=== PATIENT | male | born 1990 ===

== ENCOUNTER 2018-09-04 11:33 | Day surgery (SDC) | payer BC ==
[~2018-09-04] VITALS: Ht 182.9 cm; Wt 104.8 kg
[2018-09-04] VITALS (8 sets, daily range): BP systolic 91–114; BP diastolic 49–63
[~2018-09-04 11:33] MED LIST: IBP800T PO
[2018-09-04] MEDS ORDERED: fentaNYL INJECTION 100 MCG/2 ML AMP IVP ONE (11:45)
[2018-09-04] MEDS ORDERED: NS IV 1000 ML 1,000 ML IV SCH (11:45)
--- NOTE | 2018-09-04 11:45 | ED Abdominal Pain ---
General Stated Complaint: ABD PAIN / VOMITING Source of Information: Patient History of Present Illness Date Seen by Provider: September 04, 2018 Time Seen by Provider: 11:42 Initial Comments This 28-year-old white male presents with complaint of lower abdominal pain worse in the right side that began this morning with associated vomiting and diarrhea. Patient was seen at [facility] and referred for rule out appendicitis. Past medical history is essentially unremarkable. Patient drinks alcohol but do es not smoke or use drugs. There is no family history of significance. Allergies and Home Medications Allergies Coded Allergies: No Known Drug Allergies (Unverified , 09/04/18) Patient Home Medication List Home Medication List Reviewed: Yes Review of Systems Review of Systems Constitutional: No chills EENTM: No Blurred Vision Respiratory: Denies Cough Cardiovascular: Denies Chest Pain Gastrointestinal: Abdominal Pain, Diarrhea, Nausea, Vomiting Genitourinary: Denies Burning, Denies Frequency, Denies Flank Pain Musculoskeletal: No back pain Skin: No change in color Psychiatric/Neurological: No Symptoms Reported Endocrine: No Symptoms Reported Hematologic/Lymphatic: No Symptoms Reported Past Tqruljj-Pkekos-Sjwikd Hx Past Med/Social Hx: Reviewed Nursing Past Med/Soc Hx Patient Social History Recent Foreign Travel: No Contact w/Someone Who Travel: No Physical Exam Vital Signs Vital Signs - First Documented 09/04/18 11:46 Temp 98.0 Pulse 83 Resp 20 B/P (MAP) 119/93 (102) Pulse Ox 100 Capillary Refill : Height/Weight/BMI Height: '" Weight: lbs. oz. kg; BMI Method: General Appearance: WD/WN HEENT: normal ENT inspection Neck: normal inspection Respiratory: normal breath sounds Cardiovascular: regular rate, rhythm, no murmur Gastrointestinal: abnormal bowel sounds (hypoactive), tenderness (right lower quadrant) Genital/Rectal: normal genital exam (there is no testicular tenderness or urethral discharge) Extremities: normal range of motion, non-tender, normal inspection Back: normal inspection Male: normal genitalia Neurologic/Psychiatric: no motor/sensory deficits, alert, normal mood/affect, oriented x 3 Skin: normal color, warm/dry Progress/Results/Core Measures Results/Orders Lab Results Laboratory Tests Test 09/04/18 11:44 09/04/18 12:25 Range/Units White Blood Count 19.4 H 4.3-11.0 10^3/uL Red Blood Count 5.26 4.35-5.85 10^6/uL Hemoglobin 15.7 13.3-17.7 G/DL Hematocrit 46 40-54 % Mean Corpuscular Volume 87 80-99 FL Mean Corpuscular Hemoglobin 30 25-34 PG Mean Corpuscular Hemoglobin Concent 34 32-36 G/DL Red Cell Distribution Width 13.2 10.0-14.5 % Platelet Count 255 130-400 10^3/uL Mean Platelet Volume 10.4 7.4-10.4 FL Neutrophils (%) (Auto) 87 H 42-75 % Lymphocytes (%) (Auto) 6 L 12-44 % Monocytes (%) (Auto) 6 0-12 % Eosinophils (%) (Auto) 1 0-10 % Basophils (%) (Auto) 0 0-10 % Neutrophils # (Auto) 16.8 H 1.8-7.8 X 10^3 Lymphocytes # (Auto) 1.2 1.0-4.0 X 10^3 Monocytes # (Auto) 1.2 H 0.0-1.0 X 10^3 Eosinophils # (Auto) 0.1 0.0-0.3 10^3/uL Basophils # (Auto) 0.0 0.0-0.1 10^3/uL Neutrophils % (Manual) 71 % Lymphocytes % (Manual) 11 % Monocytes % (Manual) 6 % Eosinophils % (Manual) 1 % Basophils % (Manual) 0 % Band Neutrophils 11 % Blood Morphology Comment NORMAL Sodium Level 137 135-145 MMOL/L Potassium Level 4.0 3.6-5.0 MMOL/L Chloride Level 101 98-107 MMOL/L Carbon Dioxide Level 21 21-32 MMOL/L Anion Gap 15 H 5-14 MMOL/L Blood Urea Nitrogen 10 7-18 MG/DL Creatinine 0.91 0.60-1.30 MG/DL Estimat Glomerular Filtration Rate > 60 BUN/Creatinine Ratio 11 Glucose Level 120 H 70-105 MG/DL Calcium Level 9.6 8.5-10.1 MG/DL Corrected Calcium 8.5-10.1 MG/DL Total Bilirubin 1.0 0.1-1.0 MG/DL Aspartate Amino Transf (AST/SGOT) 24 5-34 U/L Alanine Aminotransferase (ALT/SGPT) 51 0-55 U/L Alkaline Phosphatase 78 40-136 U/L Total Protein 8.0 6.4-8.2 GM/DL Albumin 5.1 H 3.2-4.5 GM/DL Lipase 8 8-78 U/L Urine Color YELLOW Urine Clarity SLIGHTLY CLOUDY Urine pH 8 5-9 Urine Specific [place] 1.010 L 1.016-1.022 Urine Protein NEGATIVE NEGATIVE Urine Glucose (UA) NEGATIVE NEGATIVE Urine Ketones NEGATIVE NEGATIVE Urine Nitrite NEGATIVE NEGATIVE Urine Bilirubin NEGATIVE NEGATIVE Urine Urobilinogen NORMAL NORMAL MG/DL Urine Leukocyte Esterase NEGATIVE NEGATIVE Urine RBC (Auto) NEGATIVE NEGATIVE Urine RBC NONE /HPF Urine WBC RARE /HPF Urine Crystals PRESENT H /LPF Urine Amorphous Sediment RARE ALEKSANDRA PHOSPHATE H /LPF Urine Bacteria NEGATIVE /HPF Urine Casts NONE /LPF Urine Mucus SMALL H /LPF Urine Culture Indicated NO My Orders Orders - EDY HOUSTON MD Cbc And Manual Diff (09/04/18 11:45) Comprehensive Metabolic Panel (09/04/18 11:45) Lipase (09/04/18 11:45) Ua Culture If Indicated (09/04/18 11:45) Ct Abd/Pelv W (Appendicitis) (09/04/18 11:45) Ns Iv 1000 Ml (Sodium Chloride 0.9%) (09/04/18 11:45) Fentanyl Injection (Sublimaze Injection (09/04/18 11:45) Ondansetron Injection (Zofran Injectio (09/04/18 12:00) Iohexol Injection (Omnipaque 350 Mg/Ml 1 (09/04/18 12:00) Received Contrast (Hold Metformin- Contr (09/04/18 12:00) Ns (Ivpb) (Sodium Chloride 0.9%) (09/04/18 12:00) Medications Given in ED Current Medications Medications Dose Ordered Sig/Lexy Route Start Time Stop Time Status Last Admin Dose Admin Fentanyl Citrate 50 mcg ONCE ONCE IVP 09/04/18 11:45 09/04/18 11:47 DC 09/04/18 12:05 50 MCG Iohexol 100 ml ONCE ONCE IV 09/04/18 12:00 09/04/18 12:01 DC 09/04/18 12:30 100 ML Ondansetron HCl 4 mg ONCE ONCE IVP 09/04/18 12:00 09/04/18 12:01 DC 09/04/18 12:05 4 MG Sodium Chloride 250 ml ONCE ONCE IV 09/04/18 12:00 09/04/18 12:01 DC 09/04/18 12:30 80 ML Vital Signs/I&O 09/04/18 11:46 Temp 98.0 Pulse 83 Resp 20 B/P (MAP) 119/93 (102) Pulse Ox 100 Progress Progress Note : Time: 12:[address] of the abdomen was consistent with appendicitis. Dr. Harris presented to take the patient to surgery. Departure Communication (Admissions) Time/Spoke to Admitting Phy: 12:49 Dr. Harris Impression Primary Impression: Appendicitis Qualified Codes: K35.80 - Unspecified acute appendicitis Disposition: ADMITTED INPATIENT Condition: Unchanged Admissions Decision to Admit Reason: Admit from ER (General) Decision to Admit/Date: September 04, 2018 Time/Decision to Admit Time: 12:49 Departure-Patient Inst. Referrals: NO,LOCAL PHYSICIAN (PCP/Family) Primary Care Physician EDY HOUSTON MD September 04, 2018 11:45
[2018-09-04 11:53] LABS: BASOPHILS % (AUTO) 0 % (0-10); EOSINOPHILS # (AUTO) 0.1 10^3/uL (0.0-0.3); EOSINOPHILS % (AUTO) 1 % (0-10); HEMATOCRIT 46 % (40-54); HEMOGLOBIN 15.7 G/DL (13.3-17.7); LYMPHOCYTES # (AUTO) 1.2 X 10^3 (1.0-4.0); LYMPHOCYTES % (AUTO) 6 % (12-44); MEAN CORPUSCULAR HEMOGLOBIN 30 PG (25-34); MEAN CORPUSCULAR HGB CONC 34 G/DL (32-36); MEAN CORPUSCULAR VOLUME 87 FL (80-99); MEAN PLATELET VOLUME 10.4 FL (7.4-10.4); MONOCYTES # (AUTO) 1.2 X 10^3 (0.0-1.0); MONOCYTES % (AUTO) 6 % (0-12); NEUTROPHILS # (AUTO) 16.8 X 10^3 (1.8-7.8); NEUTROPHILS % (AUTO) 87 % (42-75); PLATELET COUNT 255 10^3/uL (130-400); RED CELL DISTRIBUTION WIDTH 13.2 % (10.0-14.5); WHITE BLOOD COUNT 19.4 10^3/uL (4.3-11.0)
[2018-09-04] MEDS ORDERED: HOLD METFORMIN - RECEIVED CONTRAST 20 ML VIAL IV SCH (12:00)
[2018-09-04] MEDS ORDERED: ONDANSETRON 4 MG/2 ML (SDV) Z0FRAN IVP ONE (12:00)
[2018-09-04] MEDS ORDERED: NS 250 ML (IVPB) BAG IV ONE (12:00)
[2018-09-04] MEDS ORDERED: IOHEXOL 350 MG/ML 100 ML (OMNIPAQUE 350) VIAL IV ONE (12:00)
[2018-09-04 12:12] LABS: ALANINE AMINOTRANSFERASE 51 U/L (0-55); ALBUMIN 5.1 GM/DL (3.2-4.5); ALKALINE PHOSPHATASE 78 U/L (40-136); BUN/CREATININE RATIO 11; CALCIUM 9.6 MG/DL (8.5-10.1); CARBON DIOXIDE 21 MMOL/L (21-32); CHLORIDE 101 MMOL/L (98-107); CREATININE SERUM 0.91 MG/DL (0.60-1.30); GFR ESTIMATED > 60; GLUCOSE 120 MG/DL (70-105); LIPASE 8 U/L (8-78); SODIUM 137 MMOL/L (135-145)
[2018-09-04 12:30] LABS: BILIRUBIN,URINE NEGATIVE (NEGATIVE); CLARITY,URINE SLIGHTLY CLOUDY; COLOR,URINE YELLOW; GLUCOSE, URINE (UA) NEGATIVE (NEGATIVE); KETONES,URINE NEGATIVE (NEGATIVE); LEUKOCYTE ESTERASE ,URINE NEGATIVE (NEGATIVE); NITRITE,URINE NEGATIVE (NEGATIVE); PH,URINE 8 (5-9); PROTEIN,URINE NEGATIVE (NEGATIVE); UROBILINOGEN,URINE NORMAL (NORMAL)
[2018-09-04 12:31] LABS: BAND NEUTROPHILS 11 %; BASOPHILS % (MANUAL) 0 %; EOSINOPHILS % (MANUAL) 1 %; LYMPHOCYTES % (MANUAL) 11 %; MONOCYTES % (MANUAL) 6 %; NEUTROPHILS % (MANUAL) 71 %
[2018-09-04 12:32] LABS: RBC MORPH NORMAL
[2018-09-04 12:38] LABS: AMORPHOUS SEDIMENT,UR RARE AMOR PHOSPHATE /LPF; BACTERIA,URINE NEGATIVE /HPF; WBC,URINE RARE /HPF
--- NOTE | 2018-09-04 13:00 | NUR ---
DR LOPEZ HERE ASSESSING PT AT THIS TIME.
--- NOTE | 2018-09-04 13:00 | Consultation (Surgery) ---
History of Present Illness History of Present Illness Patient Consulted On(lukas/time) 09/04/18 12:54 Time Seen by Provider: 12:42 History of Present Illness Surgery asked to consult regarding RLQ pain. HPI per ED: This 28-year-old white male presents with complaint of lower abdominal pain worse in the right side that began this morning with associated vomiting and diarrhea. Patient was seen at [facility] and referred for rule out appendicitis. When I spoke to pt in the ER he states pain is at least 8 out of 10, worst its ever been and even with pain meds he can still feel it. He states he had similar pain about a year ago and treated it with OTC "stuff" and it went away. He thought this time it was food poisoning because it started right after a BBQ last night. Pain started upper abdomen and is now all in RLQ; describing it as sharp stabbing pain. He also stated he always thought he was gonna have appendix removed, because almost everyone else in his family has had it removed. Moving makes pain worse. Allergies and Home Medications Allergies Coded Allergies: No Known Drug Allergies (Unverified , 09/04/18) Patient Home Medication List Home Medication List Reviewed: Yes Past Njwxkgd-Damivs-Alggcg Hx Patient Social History Alcohol Use: Occasionally Uses Recreational Drug Use: No Smoking Status: Never a Smoker Recent Foreign Travel: No Contact w/Someone Who Travel: No Recent Infectious Disease Expo: No Surgeries History of Surgeries: No Respiratory History of Respiratory Disorde: No Cardiovascular History of Cardiac Disorders: No Neurological History of Neurological Disord: No Genitourinary History of Genitourinary Disor: No Gastrointestinal History of Gastrointestinal Di: No Musculoskeletal History of Musculoskeletal Dis: No Endocrine History of Endocrine Disorders: No HEENT History of HEENT Disorders: No Cancer History of Cancer: No Psychosocial History of Psychiatric Problem: No Integumentary History of Skin or Integumenta: No Blood Transfusions History of Blood Disorders: No Family Medical History Significant Family History: Cerebral Aneurysm (state mother when he was 3 of some brain tumor, not sure what), Diabetes (father is pre-diabetic), Hypertension (states father does not have HTN) Review of Systems-General Constitutional: chills, diaphoresis, malaise, weakness EENTM: No blurred vision, No double vision, No mouth pain, No epistaxis Respiratory: No cough, No dyspnea on exertion Cardiovascular: No chest pain, No edema, No palpitations Gastrointestinal: abdominal pain, diarrhea; No jaundice, No melena; nausea, vomiting Genitourinary: No dysuria, No frequency, No hematuria Musculoskeletal: No joint pain, No joint swelling, No muscle pain Skin: No change in color, No change in hair/nails Psychiatric/Neurological: Denies Anxiety, Denies Depressed, Denies Seizure, Denies Tremors Other pt denies any abnormal bleeding or bruising,no heat or cold intolerance Physical Exam-General Problems Physical Exam Vital Signs Vital Signs - First Documented 09/04/18 11:46 Temp 98.0 Pulse 83 Resp 20 B/P (MAP) 119/93 (102) Pulse Ox 100 Capillary Refill : Less Than 3 Seconds General Appearance: WD/WN, mild distress Eyes: Bilateral Eye PERRL, Bilateral Eye EOMI HEENT: pharynx normal; No scleral icterus (R), No scleral icterus (L) Neck: non-tender, full range of motion, supple, normal inspection Respiratory: chest non-tender, lungs clear, normal breath sounds, no respiratory distress, no accessory muscle use Cardiovascular: regular rate, rhythm, no edema, no murmur Gastrointestinal: no organomegaly, guarding, tenderness, hernia (small umbilical) Back: no CVA tenderness, no vertebral tenderness Extremities: normal range of motion, non-tender, normal inspection, no pedal edema, no calf tenderness 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, no motor/sensory deficits, alert, normal mood/affect, oriented x 3 Skin: normal color, warm/dry Lymphatic: no adenopathy (neck, axilla or groin) Data Review Labs Laboratory Tests 09/04/18 11:44: White Blood Count 19.4H, Red Blood Count 5.26, Hemoglobin 15.7, Hematocrit 46, Mean Corpuscular Volume 87, Mean Corpuscular Hemoglobin 30, Mean Corpuscular Hemoglobin Concent 34, Red Cell Distribution Width 13.2, Platelet Count 255, Mean Platelet Volume 10.4, Neutrophils (%) (Auto) 87H, Lymphocytes (%) (Auto) 6L , Monocytes (%) (Auto) 6, Eosinophils (%) (Auto) 1, Basophils (%) (Auto) 0, Neut rophils # (Auto) 16.8H, Lymphocytes # (Auto) 1.2, Monocytes # (Auto) 1.2H, Eosinophils # (Auto) 0.1, Basophils # (Auto) 0.0, Neutrophils % (Manual) 71, Lymphocytes % (Manual) 11, Monocytes % (Manual) 6, Eosinophils % (Manual) 1, Basophils % (Manual) 0, Band Neutrophils 11, Blood Morphology Comment NORMAL, Sodium Level 137, Potassium Level 4.0, Chloride Level 101, Carbon Dioxide Level 21, Anion Gap 15H, Blood Urea Nitrogen 10, Creatinine 0.91, Estimat Glomerular Filtration Rate > 60, BUN/Creatinine Ratio 11, Glucose Level 120H, Calcium Level 9.6, Corrected Calcium , Total Bilirubin 1.0, Aspartate Amino Transf (AST/SGOT) 24, Alanine Aminotransferase (ALT/SGPT) 51, Alkaline Phosphatase 78, Total Protein 8.0, Albumin 5.1H, Lipase 8 09/04/18 12:25: Urine Color YELLOW, Urine Clarity SLIGHTLY CLOUDY, Urine pH 8, Urine Specific [place] 1.010L, Urine Protein NEGATIVE, Urine Glucose (UA) NEGATIVE, Urine Ketones NEGATIVE, Urine Nitrite NEGATIVE, Urine Bilirubin NEGATIVE, Urine Urobilinogen NORMAL, Urine Leukocyte Esterase NEGATIVE, Urine RBC (Auto) NEGATIVE, Urine RBC NONE, Urine WBC RARE, Urine Crystals PRESENTH, Urine Amorphous Sediment RARE ALEKSANDRA PHOSPHATEH, Urine Bacteria NEGATIVE, Urine Casts NONE, Urine Mucus SMALLH, Urine Culture Indicated NO Assessment/Plan Assessment/Plan Assessment/Plan Acute appendicitis with Appendicolith Plan is NPO, IV fluids, pain control will get IV ABX just prior to OR. To OR for Laparoscopic Appendectomy possible open. Discussed procedure with pt; risks and complications not limited to pain, bleeding, infection, scar, damage to bowel and need for further procedure. All questions answered to his satisfaction. CARMINA LOPEZ DO September 04, 2018 13:00
--- NOTE | 2018-09-04 13:03 | Diagnostic Imaging Report ---
PROCEDURE: CT abdomen and pelvis with contrast, rule out appendicitis. TECHNIQUE: Multiple contiguous axial images were obtained through the abdomen and pelvis after the administration of intravenous contrast. INDICATION: Right lower quadrant abdominal pain. No comparison available. FINDINGS: The lung bases demonstrates some mild dependent atelectasis and otherwise are clear. There is no pleural effusion. The liver demonstrates no focal intrahepatic abnormality. The gallbladder is nondistended. There is no radiodense gallstone or evidence of biliary dilatation. There appears to likely be mild hepatic steatosis with some focal fatty sparing along the gallbladder fossa. Spleen is normal in size. The pancreas is unremarkable. There is no adrenal mass. The kidneys enhance normally and appear nonobstructed. Small and large bowel are normal in caliber without evidence of obstruction. There is no abnormal small or large bowel thickening. The appendix is abnormally enlarged and contains an appendicolith and has adjacent inflammatory fat stranding. The findings are compatible with an acute appendicitis. There is no free air or evidence of an abscess. There is a small degree of free fluid present within the pelvis. Urinary bladder nondistended. There are no pathologically enlarged lymph nodes. Aorta is normal in caliber. There is no acute or suspicious osseous abnormality. IMPRESSION: 1. No abnormally enlarged appendix with an appendicolith and adjacent fat stranding. There is a small degree of free fluid present within the pelvis but no free air. The appendix measures up to 12 mm in size. Findings are compatible with an acute appendicitis. 2. There is no bowel obstruction. Dictated by: Dictated on workstation # [id number]
--- NOTE | 2018-09-04 13:12 | NUR ---
anesthesia here assessing pt at this time.
[2018-09-04] MEDS ORDERED: SEVOFLURANE (ULTANE) 15 ML INHAL SOLN ONE ×3 (13:14→14:15)
[2018-09-04] MEDS ORDERED: DEXAMETHASONE 10 MG/ML (DECADRON) 1 ML VIAL ONE (13:14)
[2018-09-04] MEDS ORDERED: ONDANSETRON 4 MG/2 ML (SDV) Z0FRAN ONE ×2 (13:14→14:15)
[2018-09-04] MEDS ORDERED: proPOfol 200 MG/20 ML (DIPRIVAN) VIAL IV ONE (13:14)
[2018-09-04] MEDS ORDERED: LIDOCAINE PF 2% 5 ML (XYLOCAINE) VIAL ONE (13:14)
[2018-09-04] MEDS ORDERED: MIDAZOLAM 2 MG/2 ML (VERSED) VIAL ONE (13:15)
[2018-09-04] MEDS ORDERED: fentaNYL INJECTION 100 MCG/2 ML AMP ONE (13:15)
[2018-09-04] MEDS ORDERED: BUP/EPI 0.5% 1:200,000 (SENSORCAINE) 30 ML VIAL ONE (13:16)
[2018-09-04] MEDS ORDERED: LIDOCAINE 1% INJ 20 ML 20 ML VIAL ONE (13:16)
--- NOTE | 2018-09-04 13:19 | NUR ---
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
--- OUTSIDE RECORDS SUMMARY | 2018-09-04 13:30 | XMS REPORT ---
Author Author HIRO DAVIS [facility] [address] Address [address] [place] [address] Care Team Providers Care Cataract Lens Generator Name Role Phone DAVISHIRO Unavailable PROBLEMS Type Condition ICD9-CM Code LEY31-NA Code Onset Dates Condition Status SNOMED Code Problem Impacted cerumen 380.4 Active 08565595 Problem Closed fracture of shaft of fibula with tibia 823.22 Active 305194709 ALLERGIES No Information ENCOUNTERS Encounter Location Date Diagnosis [facility] [id number] [place] [phone] Jan, Encounter for immunization Z23 [facility] [address] [id number] Apr, Encounter for dental exam and cleaning w/o abnormal findings Z01.20 [facility] [place] [address] [id number] Jul, [facility] [place] [address] [address] Jul, [facility] [place] [id number] [place] [phone] Sep, [facility] [place] [id number] [place] [phone] Sep, [facility] [place] [address] [address] August, [facility] [place] [address] [address] August, [facility] [place] [id number] [place] [phone] August, [facility] [place] [address] [place] [address] August, [facility] [place] [address] [facility] [id number] [address] Jun, [facility] [place] [address] [facility] [id number], [place] [address] Jun, [facility] [place] [address] [facility] [id number], [place] [address] Jun, [facility] [place] [address] [id number], [place] [address] Jun, [facility] [place] [address] [id number], [place] [address] Feb, [facility] [place] [address] [id number], [place] [address] Feb, IMMUNIZATIONS Vaccine Route Administration Date Status FLULAVAL QUAD 0.5ML (6 MO & UP) 2018 IM Intramuscular Feb 13, 2018 Administered SOCIAL HISTORY Never Assessed REASON FOR VISIT Flu [facility]. [facility] PLAN OF CARE VITAL SIGNS MEDICATIONS Unknown Medications RESULTS No Results PROCEDURES Procedure Date Ordered Result Body Site FLULAVAL QUAD 0.5ML (6 MO AND UP) 2018 Feb 13, 2018 SINGLE IMMUNIZATION ADMIN Feb 13, 2018 INSTRUCTIONS MEDICATIONS ADMINISTERED No Known Medications
--- OUTSIDE RECORDS SUMMARY | 2018-09-04 13:30 | XMS REPORT ---
Author Author PARAG MCCANN [facility] Address [address] [place] [address] Phone Unavailable Care Team Providers Care Neuropsychology Director Name Role Phone PARAG MCCANN Unavailable Unavailable PROBLEMS Type Condition ICD9-CM Code VWP88-FV Code Onset Dates Condition Status SNOMED Code Problem Impacted cerumen 380.4 Active 08705504 Problem Closed fracture of shaft of fibula with tibia 823.22 Active 172805841 ALLERGIES No Information ENCOUNTERS Encounter Location Date Diagnosis [facility] [id number] [place] [id number] Apr, Encounter for dental exam and cleaning w/o abnormal findings Z01.20 [facility] [id number] [place] [phone] Jul, [facility] [id number] [place] [address] Jul, [facility] [id number] [place] [address] Sep, [facility] [id number] [place] [address] Sep, [facility] [id number] [place] [address] August, [facility] [id number] [place] [address] August, [facility] [id number] [place] [phone] August, [facility] [id number] [place] [address] August, [facility] [id number] [place] [phone] Jun, [facility] [address] [facility] [id number], [place] [address] 27 Jun, 2013 [facility] [address] [facility] [id number], [place] [address] 17 Jun, 2013 [facility] [address] [facility] [id number], [place] [address] 17 Jun, 2013 [facility] [address] [facility] [id number], [place] [address] 16 Feb, 2010 [facility] [address] [facility] [id number], [place] [address] 16 Feb, 2010 IMMUNIZATIONS No Known Immunizations SOCIAL HISTORY Never Assessed REASON FOR VISIT PROPHY PLAN OF CARE Activity Details Follow Up prn Reason:40 MINUTES RESTORATIVE VITAL SIGNS MEDICATIONS Unknown Medications RESULTS No Results PROCEDURES Procedure Date Ordered Result Body Site COMP ORAL EVALUATION - NEW/EST PT Apr 27, 2017 INTRAORL-PERIAPICAL 1 FILM [id number] Apr 27, 2017 PROPHYLAXIS - ADULT Apr 27, 2017 INTRAORL-PERIAPICAL EA ADD FILM Apr 27, 2017 INTRAORL-PERIAPICAL EA ADD FILM Apr 27, 2017 BITEWINGS - FOUR FILMS Apr 27, 2017 INTRAORL-PERIAPICAL EA ADD FILM Apr 27, 2017 INSTRUCTIONS MEDICATIONS ADMINISTERED No Known Medications
--- OUTSIDE RECORDS SUMMARY | 2018-09-04 13:30 | XMS REPORT | Continuity of Care Document ---
Author Organization Unknown Address Unknown Allergies There is no data. Medications There is no data. 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 01/23/2010 HIRO DAVIS DO 296.31 MO DEPRESSIVE RECURRENT MILD 01/23/2010 HIRO DAVIS DO 296.31 MO DEPRESSIVE RECURRENT MILD 03/05/2010 HIRO DAVIS DO V70.0 ROUTINE GENERAL MEDICAL EXAMINATION AT A HEALTH CARE FACILITY 03/05/2010 HIRO DAVIS DO V70.0 ROUTINE GENERAL MEDICAL EXAMINATION AT A HEALTH CARE FACILITY 03/05/2010 HIRO DAVIS DO V70.0 ROUTINE GENERAL MEDICAL EXAMINATION AT A HEALTH CARE FACILITY 03/05/2010 HIRO DAVIS DO V70.0 ROUTINE GENERAL MEDICAL EXAMINATION AT A HEALTH CARE FACILITY 07/04/2013 HIRO DAVIS DO 823.22 CLOSED FRACTURE OF SHAFT OF FIBULA WITH TIBIA 07/04/2013 HIRO DAVIS DO 823.22 CLOSED FRACTURE OF SHAFT OF FIBULA WITH TIBIA 07/04/2013 HIRO DAVIS DO 823.22 CLOSED FRACTURE OF SHAFT OF FIBULA WITH TIBIA 07/04/2013 HIRO DAVIS DO 823.22 CLOSED FRACTURE OF SHAFT OF FIBULA WITH TIBIA 09/26/2013 HIRO DAVIS DO 380.4 IMPACTED CERUMEN Procedures Code Description Performed By Performed On ORTHOPEDI RAVI FARMER 07/05/2013 27473 XRAY ANKLE L COMP MIN, 3 VIEWS 07/14/2013 62656 XRAY ANKLE L, 2 VIEW 08/24/2013 47503 EAR LAVAGE 09/27/2013 Results There is no data. Encounters ACCT No. Visit Date/Time Discharge Status Pt. Type Provider Facility Loc./Unit Complaint [id number] 09/26/2013 18:39:00 09/26/2013 23:59:59 CLS Outpatient HIRO DAVIS DO [id number] 08/18/2013 12:05:00 08/18/2013 23:59:59 CLS Outpatient HIRO DAVIS DO Radu [id number] 07/14/2013 13:58:00 07/14/2013 23:59:59 CLS Outpatient HIRO DAVIS DO Radu [id number] 07/04/2013 17:27:00 07/04/2013 23:59:59 CLS Outpatient HIRO DAVIS DO [id number] 06/30/2013 18:36:00 06/30/2013 23:59:59 CLS Outpatient [id number] 09/04/2018 12:48:00 ACT Outpatient CARMINA LOPEZ DO Via [facility] APPY [id number] 09/04/2018 09:15:00 ACT Outpatient [facility]
--- OUTSIDE RECORDS SUMMARY | 2018-09-04 13:37 | XMS REPORT | Continuity of Care Document ---
[...] By Performed On ORTHOPEDI RAVI FARMER 07/05/2013 35736 XRAY ANKLE L COMP MIN, 3 VIEWS 07/14/2013 34378 XRAY ANKLE L, 2 VIEW 08/24/2013 [id number] EAR LAVAGE 09/27/2013 Results There is no data. Encounters ACCT No. Visit Date/Time Discharge Status Pt. Type Provider Facility Loc./Unit Complaint [id number] 09/26/2013 18:39:00 09/26/2013 23:59:59 CLS Outpatient HIRO DAVIS DO [id number] 08/18/2013 12:05:00 08/18/2013 23:59:59 CLS Outpatient HIRO DAVIS DO Radu [id number] 07/14/2013 13:58:00 07/14/2013 23:59:59 CLS Outpatient HIRO DAVIS DO Radu [id number] 07/04/2013 17:27:00 07/04/2013 23:59:59 CLS Outpatient HIRO DAVIS DO [id number] 06/30/2013 18:36:00 06/30/2013 23:59:59 CLS Outpatient [id number] 09/04/2018 12:48:00 ACT Outpatient CARMINA LOPEZ DO [facility] APPY [id number] 09/04/2018 09:15:00 ACT Outpatient [facility]
[2018-09-04] MEDS ORDERED: ceFAZolin INJECTION 2,000 MG ONE (14:04)
--- NOTE | 2018-09-04 14:12 | Progress Note-Post Operative ---
Post-Operative Progess Note Surgeon (s)/Superintendent Pipelines (s) Surgeon CARMINA LOPEZ DO Superintendent Pipelines: NONE Pre-Operative Diagnosis Acute appy Post-Operative Diagnosis same plus small Indirect RIH, with small LIH Procedure & Operative Findings Date of Procedure 09/04/18 Procedure Performed/Findings Lap appy Anesthesia Type GET Estimated Blood Loss Estimated blood loss (mL): scant Specimens/Packing Specimens Removed CARMINA Suh DO September 04, 2018 14:12
[2018-09-04] MEDS ORDERED: ACHD5005 PO (14:13)
--- NOTE | 2018-09-04 14:14 | Discharge Inst-Surgical ---
Discharge Inst-Surgical Depart Medication/Instructions New, Converted or Re-Newed RX: RX Given to Pt/Family Patient Instructions Follow up Appt: Make appointment for 1 week. [phone] Instructions: No lifting greater than 20 pounds. No strenuous activity. May shower in 24 hours, no tub bath or soaking. Use incentive spirometer at home as directed. No Smoking Skin/Wound Care: May remove bandages in am. You need to leave the Dermabond on incision it will fall off on it's own. Symptoms to Report: Appetite Changes, Extremity Discoloration, Numbness/Tingling, Swelling Increased, Bleeding Excessive, Eyesight Changes, Pain Increased, Urine Color Change, Constipation(Persistent), Fever over 101 degree F, Pain/Pressure in chest, Urinating Difficulty, Cough Up/Vomit Blood, Heart Beat Irreg/Pounding, Pain/Pressure in jaw, Cramps in feet or legs, Lightheadedness, Pain/Pressure in shoulder, Diarrhea(Persistent), Memory Changes Suddenly, Questions/Concerns, Weight gain consecutive days, Dizziness/Fainting, Nausea/Vomiting, Shortness of Breath, Weight gain over 2 pounds If questions or concerns contact your physician Or seek help at emergency department. Activity Activity as Tolerated: Yes Activity Instructions: Avoid Stress to Incision Driving Instructions: No Driving/Refer to Dr. Monroy Discharge Diet: No Restrictions Diet After 24 Hours: Clear Liquid if Nauseous If Any Problems/Questions/Issu: Contact Your Physician, Go to Emergency Room Skin/Wound Care Infection Signs and Symptoms: Increased Redness, Foul Odor of Wound, Increased Drainage, Skin Itchy or Has a Rash, Increased Swelling, Temperature Above 101 F Wound Care Comment: Use heating pad to shoulder or neck tonight for pain Bathing Instructions: Shower Stitches/Doug/Dermabond Dis: Dermabond Ice Pack: Ice On and Off Site (as needed for pain at incision sites.) CARMINA LOPEZ DO September 04, 2018 14:14
[2018-09-04] MEDS ORDERED: morphine INJ 10 MG/ML 1ML (SYR OR VIAL) ONE (14:15)
[2018-09-04] MEDS ORDERED: NEOSTIGMINE 1 MG/ML 5 ML SYRINGE ONE (14:15)
[2018-09-04] MEDS ORDERED: KETOROLAC 30 MG/ML VIAL ONE (14:15)
[2018-09-04] MEDS ORDERED: GLYCOPYRROLATE 0.2 MG/ML (ROBINUL) 2 ML VIAL ONE (14:15)
[2018-09-04] MEDS ORDERED: LACTATED RINGERS 1,000 ML IV SCH (14:15)
[2018-09-04] MEDS ORDERED: morphine INJ 10 MG/ML 1ML (SYR OR VIAL) IVP ONE (14:45)
[2018-09-04] MEDS ORDERED: PROMETHAZINE INJ 25 MG/ML (PHENERGAN) AMP IVP ONE (14:45)
[2018-09-04] MEDS ORDERED: ONDANSETRON 4 MG/2 ML (SDV) Z0FRAN IVP PRN (14:45)
--- NOTE | 2018-09-04 18:59 | OPERATIVE REPORT ---
DATE OF SERVICE: 09/04/2018 PREOPERATIVE DIAGNOSIS: Acute appendicitis. POSTOPERATIVE DIAGNOSES: Acute appendicitis. The patient had a small right indirect inguinal hernia and the left inguinal hernia. PROCEDURE: Laparoscopic appendectomy. SURGEON: Sherwin Harris DO. CATEGORY DIRECTOR: None. ANESTHESIA: General endotracheal tube. SPECIMEN: Appendix. BLOOD LOSS: Scant. FLUIDS: Per anesthesia. POSTOPERATIVE CONDITION: Stable. INDICATION FOR PROCEDURE: The patient is a 28-year-old male with right lower quadrant pain, 19,[address], which showed acute appendicitis with appendicolith. FINDINGS: The patient had acute appendicitis. PROCEDURE NOTE: After informed consent was obtained, the patient was brought to the operating room, placed on the table in the supine position, sterilely prepped and draped in normal fashion. Local lidocaine was used to infiltrate the skin above the umbilicus and made an incision with #11 blade, carried down through the skin and subcutaneous tissue, then deepened down to subcutaneous tissue with Bovie electrocautery down to the fascia. Fascia was then incised with Bovie electrocautery and then bluntly entered the abdomen, swept the finger around, placed 0 Vicryl [id number] suture and placed an 11 mm trocar port under direct visualization. Created pneumoperitoneum. Then placed 2 more ports in a normal fashion using local lidocaine, 11 blade for stab incision and the Big StageStep system, all done under direct visualization, one suprapubically and one in left lower quadrant. The patient was placed slightly in Trendelenburg and rotated left, able to visualize the gallbladder. Able to visualize the appendix, then grasped the mesoappendix and started coming across the mesoappendix with LigaSure, clamping, coagulating and transecting in this fashion completely freeing up the appendix until it was only attached to the cecum. Switched to 5 mm camera, brought Endo-MARIANO in and clamped across the base of appendix, clamped and fired, thereby transecting the appendix, took a picture, the staple line looked good. Placed a bag and then placed the appendix in the bag, removed through supraumbilical incision. Placed the port back in the abdomen, copiously irrigated with normal saline, suctioned this out, looked around, no obvious pathology and then at this point, placed the patient supine, removed all ports under direct visualization, allowed pneumoperitoneum to escape and then closed the supraumbilical incision, closing the fascia with 0 Vicryl suture previously placed. Copiously irrigated all incisions with normal saline. Closed the 2 small 5 mm incisions with a single interrupted 4-0 undyed Monocryl subcuticular stitch. Closed the supraumbilical incision with 3 interrupted 4-0 undyed Monocryl subcuticular stitch. The area was cleaned and dried. Dermabond and Band-Aids were placed. The patient was still in the room while I was dictating this, but he tolerated the procedure well. Sponge and needle counts were correct at the end of the case. Job ID: [id number] DocumentID: [id number] Dictated Date: 09/04/2018 14:12:45 Passenger Service Representative Date: 09/04/2018 18:58:22 Dictated By: SHERWIN HARRIS DO
== END 2018-09-04 17:30 | disposition home or self-care (01) ==
LOC: EDUNIT# 11:33 → ER 11:34 → SDC 12:48 → 4TH 15:52 → SDC 17:30
PROVIDERS: ATTEND Surgery
DX: K35.80 Unspecified acute appendicitis (principal); K40.20 Bilateral inguinal hernia, without obstruction or gangrene, not specified as recurrent
CPT/HCPCS: 36415; 74177; 80053; 81000; 83690; 85007; 85027; 96361; 96374; 96375